=== PATIENT | female | born 1945 ===

== ENCOUNTER → 2020-08-13 | Day surgery (SDC) | payer OTHER ==
[~2020-08-13] MED LIST: AMLODIPINE BESYL5 MG PO; GABAPENTIN800 M1 PO; IRBESARTAN150 MG PO; MACROBID 100 M100 MG PO; MOVE FREE ULTR1 EAC1 PO; QVAR REDIHALE10.6 GM IH; SKELAXIN800 MG PO; ZANAFLEX2 M1 PO
== END | disposition home or self-care (01) ==
LOC: ADM 08-06 12:00 → CIR.AMB 06:41
PROVIDERS: ATTEND Obstetrics & Gynecology Gynecology
DX: N81.11 Cystocele, midline (principal); N81.5 Vaginal enterocele; Z20.822 Contact with and (suspected) exposure to COVID-19

== ENCOUNTER 2020-08-16 10:17 | Emergency (ER) | payer OTHER ==
[~2020-08-16] VITALS: Ht 160 cm; Wt 63.5 kg
[~2020-08-16 10:17] MED LIST changes: -AMLODIPINE BESYL5 MG PO
[2020-08-16] MEDS ORDERED: AMLODIPINE BESYL5 MG PO (10:32)
== END 2020-08-16 15:30 | disposition home or self-care (01) ==
LOC: ER 10:17
DX: I87.2 Venous insufficiency (chronic) (peripheral) (principal); M79.605 Pain in left leg